=== PATIENT | female | born 1945 | race Two or more races ===

== ENCOUNTER 2018-10-27 10:18 | Outpatient (CLI) | payer OTHER ==
[~2018-10-27 10:18] MED LIST: ASA81 MG PO; CALCIO; CENTRUM CARDIO; ENALAPRIL; OMEGA 3 FISH OI1 CAP PO; [UNRECOGNIZED DRUG - OTHER]; [UNRECOGNIZED DRUG - OTHER]
== END 2018-10-27 13:02 | disposition home or self-care (01) ==
LOC: SONOGRAMA 10:18
DX: E04.2 Nontoxic multinodular goiter (principal)